=== PATIENT | female | born 1970 | race Caucasian/White ===

== ENCOUNTER → 2017-02-28 | Day surgery (SDC) | payer MEDICAID ==
[~2017-02-28] VITALS: Ht 170.2 cm; Wt 89.1 kg
[~2017-02-28] MED LIST: *RESP: ALBUTEROL 2.5 MG/3 ML NEB (PRN) PERIprocedural Use ONLY NEB ONE; CHLORHEXIDINE GLUCONATE 2 % 1 PACK (2 CLOTHS) TOPICAL PRN; DEXAMETHASONE SOD PHOS 4 MG/ML VIAL IV ONE; DO NOT ADM ANY ANTICOAGULANT DRUGS PRN; ESTR0.1D3 T-DERMAL; HYDROmorphone HCL PF 2 MG/ML VIAL ONE; LACTATED RINGER'S 1000 ML IV PRN; LIDOCAINE HCL 1% PF 5 ML SYRINGE OTHER ONE; LORA-474 PO; METOPROLOL TARTRATE 25 MG TAB PO PRN; ONDANSETRON HCL 4 MG/2 ML VIAL IV PUSH ONE; ONDANSETRON HCL 4 MG/2 ML VIAL IV PUSH PRN; PERC5TAB12 PO; POVIDONE IODINE 5% (ANTISEPSIS KIT) 4 APPLICATIONS EACH NARE PRN; PROPOFOL 200 MG/20 ML AMP IV ONE; PROZ40CA PO; SODIUM CHLORID 0.9% 500 ML IV PRN; oxyCODONE/ACETAMINOPHEN 5 MG/325 MG TAB PO PRN
--- NOTE | 2017-02-28 10:23 | RADRPT ---
EXAM DATE/TIME: 02/28/2017 08:59 [place] COMPARISON: No previous studies available for comparison. INDICATIONS : Pre op lithotripsy. MEDICAL HISTORY : Renal calculi. SURGICAL HISTORY : Tubal ligation. Right hand. Renal stone calculi. ENCOUNTER: Initial ACUITY: 1 day PAIN SCORE: 0/10 LOCATION: Abdomen. FINDINGS: Supine view of the abdomen was performed. The abdominal bowel gas pattern is normal. 2.2 cm calcifi cation with central lucency in the right upper quadrant overlying the central gallbladder versus supe rior pole of the right kidney. There is a 5 mm calcified density projecting over the inferior pole. O verall appearance is more consistent with a gallstone. Cluster of calcifications overlying the inferi or pole the left kidney measuring 8 mm, 7 mm, and 5 mm. 4 mm calcified density projecting over the hopper perior pole of the left kidney. Evaluation is limited by colonic gas. There are 2 dominant 4 mm calci fications in the pelvis overlying the region of the right and left UVJs. The osseous structures are u nremarkable. CONCLUSION: 1. 2.2 cm calcified density in the right upper quadrant overlying the gallbladder/superior pole of th e right kidney is more consistent with gallstone. 2. Cluster of suspected calcified calculi overlying the inferior pole of the left kidney measuring 8 mm, 7 mm, and 5 mm obscured by stool in the transverse colon. 3. 4 mm suspected calcified calculus projecting over the superior pole of the left kidney. 4. 5 mm suspected calcified calculus projecting over the inferior pole the right kidney. 5. 4 mm calcified densities in the pelvis corresponding to the region of the UVJ bilaterally. Suspect phleboliths. Tanner Bella MD on February 28, 2017 at 10:14 Board Certified Radiologist. This report was verified electronically.
--- NOTE | 2017-02-28 12:39 | PD.OP ---
Operative Report Date of Surgery: Feb 28, 2017 Preoperative Diagnosis: (1) Renal calculus, left Postoperative Diagnosis: (1) Renal calculus, left Procedure: ESWL left renal calculi Anesthesia: General Surgeon: Mario Alberto Julian Nutrition Tech(s): None Operation and Findings: Indication for procedure: Case of a pleasant 46-year-old female with history of an atrophic right kidney and a left kidney containing multiple lower pole calculi who presents today to undergo left sided extracorporeal shockwave lithotripsy. Operative procedure in detail: Patient was brought to the operating room suite and placed supine on the lithotripsy table. She was then placed under general anesthesia. After an appropriate timeout was undertaken, I proceeded with localization of the patient's left lower pole renal calculi with fluoroscopy. She subsequently received extracorporeal shockwave lithotripsy utilizing the Dornier mobile lithotripsy device. The patient received a total of 3000 shocks to the cluster of stones involving the lower left kidney with a maximum power level setting of 6. The stones appeared to spread out considerably consistent with fragmentation. The patient tolerated the procedure without complications and was transferred to the PACU in satisfactory condition. Mario Alberto Julian MD Feb 28, 2017 12:39
[2017-02-28 13:50] VITALS: BP 134/75; PULSE 59; RESP 20; TEMP 97.3; O2SAT 100
== END | disposition home or self-care (01) ==
LOC: HSDC 08:22
PROVIDERS: ATTEND Urology
DX: N20.0 Calculus of kidney (principal)
CPT/HCPCS: 00873; 50590; 74018; 94664; J1100; J1170; J2405; J7120; J7613